=== PATIENT | male | born 1995 | race Caucasian/White ===

== ENCOUNTER 2016-06-21 14:03 | Emergency (ER) | payer BC ==
[2016-06-21 14:49] VITALS: BP 135/87
--- NOTE | 2016-06-21 15:20 | UC ---
Throat Pain/Nasal Jared HPI - HPI Summary HPI Summary: One week of sore throat, headache, malaise, ear pressure with progressive cough. No fever. X 2 days has increased eye irritation and discharge, worse on the left. He has discarded his lenses which are monthly extended wear lenses. - History of Current Complaint Chief Complaint: UCGeneralIllness Stated Complaint: SINUS,BILATERAL EYE COMPLAINT Time Seen by Provider: 06/21/16 15:14 Hx Obtained From: Patient Onset/Duration: Gradual Onset, Lasting Days - 7 Severity: Moderate Cough: Nonproductive Associated Signs & Symptoms: Positive: Dysphagia, Hoarseness, Sinus Discomfort - Epiglottits Risk Factors Epiglottis Risk Factors: Negative - Allergies/Home Medications Allergies/Adverse Reactions: Allergies Allergy/AdvReac Type Severity Reaction Status Date / Time No Known Allergies Allergy Verified 06/21/16 14:41 PMH/Surg Hx/FS Hx/Imm Hx Previously Healthy: Yes - Surgical History Surgical History: Yes Surgery Procedure, Year, and Place: sinus surgery, left shoulder surgery. past tonsillectomy - Family History Known Family History: Positive: Other - no family history of allergies. - Social History Occupation: Student Alcohol Use: None Substance Use Type: None Smoking Status (MU): Never Smoked Tobacco Review of Systems Constitutional: Negative Skin: Negative Eyes: Eye Redness ENT: Sore Throat, Ear Ache Respiratory: Negative Cardiovascular: Negative Gastrointestinal: Negative Genitourinary: Negative Motor: Negative Neurovascular: Negative Musculoskeletal: Negative Neurological: Headache - sinus pressure Psychological: Negative All Other Systems Reviewed And Are Negative: Yes Physical Exam Triage Information Reviewed: Yes Appearance: Ill-Appearing - congested and looks mildly unwell, Obese Vital Signs: Initial Vital Signs Temp 98.7 F 06/21/16 14:41 Pulse 86 06/21/16 14:41 Resp 16 06/21/16 14:41 BP 135/87 06/21/16 14:41 Pulse Ox 97 06/21/16 14:41 Eyes: Positive: Conjunctiva Inflamed - left eye injected with light yellow drainage, right also with injection. SUPRIYA, no photophobia. ENT: Positive: Pharyngeal erythema, TM red - bilateral TM retraction and erythema Neck: Positive: Supple, Nontender, No Lymphadenopathy Respiratory: Positive: Lungs clear, Normal breath sounds Cardiovascular: Positive: RRR, No Murmur Neurological Exam: Normal Neurological: Positive: Alert Psychological Exam: Normal Skin Exam: Normal Throat Pain/Nasal Course/Dx - Course Course Of Treatment: augmentin for sinusitis, drops for conjunctivitis. - Differential Dx/Diagnosis Differential Diagnosis/HQI/PQRI: Influenza, Pharyngitis, Sinusitis, Other - conjunctivitis Provider Diagnoses: sinusitis (acute). bilateral conjunctivitis. Discharge - Discharge Plan Condition: Stable Disposition: HOME Prescriptions: Amoxicillin/Clavulanate TAB* [Augmentin TAB 875*] 875 mg PO BID #20 tab Tobramycin 0.3% OPHTH.JOSE* 2 drop BOTH EYES Q4H #1 btl Patient Education Materials: Sinusitis (ED), Conjunctivitis (ED) Additional Instructions: Take the full course of augmentin, being aware of diarrhea and stomach cramping as a side effect. You should begin use of your contact lenses after the conjunctivitis is fully treated.
== END 2016-06-21 15:37 | disposition home or self-care (01) ==
LOC: UCCORT 14:03
DX: J01.90 Acute sinusitis, unspecified (principal); H10.33 Unspecified acute conjunctivitis, bilateral; E66.9 Obesity, unspecified
CPT/HCPCS: 99212; G0463

== ENCOUNTER 2016-07-05 12:07 | Emergency (ER) | payer BC ==
--- NOTE | 2016-07-05 13:21 | UC ---
Lower Extremity/Ankle HPI - HPI Summary HPI Summary: TWO DAYS AGO WALKING OUT OF HOUSE, SLIPPED ON WET STEPS, ROLLED LEFT ANKLE. STATES DULL, ACHE IN ANKLE ALL THROUGHOUT THE DAY, AT NIGHT HE HAS FOOT SPASMS, AND IN THE MORNING INCREASE IN PAIN. UNABLE TO PUT ANY WEIGHT ON FOOT, LIMITED ROM. SWELLING AND BRUISING TO ANKLE. He has been using crutches that he borrowed from a friend. Goes to college here. Doesnt have a car. pain is constant at 6/10. He took 2 excedrin this AM. Doesnt have elevated BP normally. - History of Current Complaint Chief Complaint: UCLowerExtremity Stated Complaint: LEFT ANKLE INJURY Time Seen by Provider: 07/05/16 13:19 - Allergies/Home Medications Allergies/Adverse Reactions: Allergies Allergy/AdvReac Type Severity Reaction Status Date / Time No Known Allergies Allergy Verified 06/21/16 14:41 Home Medications: Home Medications Cyqpbpy-Pmfiicelqusle-Dnaexpro [Excedrin Migraine 250-250-65 mg] 2 tab PO PRN [History] PMH/Surg Hx/FS Hx/Imm Hx Previously Healthy: Yes - Surgical History Surgical History: Yes Surgery Procedure, Year, and Place: sinus surgery, left shoulder surgery. past tonsillectomy - Family History Known Family History: Positive: Other - no family history of allergies. Negative: Cardiac Disease, Diabetes - Social History Alcohol Use: Occasionally Substance Use Type: None Smoking Status (MU): Never Smoked Tobacco Review of Systems Constitutional: Negative Skin: Negative Eyes: Negative ENT: Negative Respiratory: Negative Cardiovascular: Negative Gastrointestinal: Negative Genitourinary: Negative Motor: Negative Neurovascular: Negative Musculoskeletal: Arthralgia, Decreased ROM, Edema, Other: - bruising Neurological: Negative Psychological: Negative All Other Systems Reviewed And Are Negative: Yes Physical Exam Triage Information Reviewed: Yes Appearance: Well-Appearing, No Pain Distress - while sitting., Well-Nourished - very pleasant Vital Signs: Initial Vital Signs Temp 98.4 F 07/05/16 12:43 Pulse 91 07/05/16 12:43 Resp 16 07/05/16 12:43 BP 154/103 07/05/16 12:43 Pulse Ox 99 07/05/16 12:43 Vital Signs Reviewed: Yes Eye Exam: Normal ENT Exam: Normal Respiratory Exam: Normal Respiratory: Positive: Lungs clear Cardiovascular Exam: Normal Cardiovascular: Positive: RRR, No Murmur, Pulses Normal, Brisk Capillary Refill Musculoskeletal: Positive: Other: - left ankle with moderate generalized swelling. there is bruising at inferor medial and lateral ankle that is purple in color. significant tenderness in this area as well. cool totouch. mortise intact. CR brisk. good ROM in toes. sensation intact. Neurological Exam: Normal Psychological Exam: Normal Skin Exam: Normal Lower Extremity Course/Dx - Course Course Of Treatment: left ankle xray- Indication: 3 views of the left ankle demonstrates no fracture. Soft tissue swelling is noted. laterally. No fracture is noted. IMPRESSION: Soft tissue swelling laterally without evidence of fracture. ISTOP: Confidential Drug Utilization Report Search Date:2016 02:07:23 PM. The Drug Utilization Report below displays all of the controlled substance prescriptions, if any, that your patient has filled in the last twelve months. The information displayed on this report is compiled from pharmacy submissions to the Department, and accurately reflects the information as submitted by the pharmacies. 11/07/2015. hydrocodone-acetaminophen 7.5-300 mg tablet 12, 3. Dasia Mustafa DDS. At the end of the visit pt asks for something stronger than tylenol with codeine that I had agreed to give him. He states that he got off of the phone with his Mom and she told him he will need something stronger. I have advised him that stronger narcotic medicine is not indicated for an ankle sprain as the xray is read as negative for fracture. He is visibly upset with elevated voice and agitation. I have discussed with him that there is significant concerns with addiction to controlled substances and stronger medicine is not indicated. He should ahve BP rechecked on Thursday at [facility]. Limit NSAIDs with elev BP. He has taken 2 excedrin prior to coming in today. Excedrin and pain are likely cause of elevated BP today. BP was repeated and improved to 130s/90. - Differential Dx/Diagnosis Differential Diagnosis/HQI/PQRI: Fracture (Closed), Sprain, Strain, Tendonitis Provider Diagnoses: Left ankle sprain Discharge - Discharge Plan Condition: Stable Disposition: HOME Prescriptions: Acetaminop/Codeine 30 MG TAB* [Tylenol/Codeine 30 MG TAB*] 1 tab PO Q12H PRN #6 tab MDD 2 PRN Reason: Pain Patient Education Materials: Ankle Sprain (ED) Referrals: Jeancarlos Andrew MD [Medical Doctor] - 2 Days No Primary Care Phys,NOPCP [Primary Care Provider] - Additional Instructions: Ice with towel barrier as much as possible. Gel air cast and crutches have been provided. Go to [facility] to get your blood pressure checked periodically. I have shown you exercises for your ankle. Ibuporfen for pain and swelling. You may need xrays repeated in 2 wks if your symptoms are no better.
--- NOTE | 2016-07-05 13:51 | RAD ---
Indication: Lateral ankle pain. 3 views of the left ankle demonstrates no fracture. Soft tissue swelling is noted laterally. No fracture is noted. IMPRESSION: Soft tissue swelling laterally without evidence of fracture.
[2016-07-05 14:26] VITALS: BP 163/99
== END 2016-07-05 14:58 | disposition home or self-care (01) ==
LOC: UCCORT 12:07
DX: S93.402A Sprain of unspecified ligament of left ankle, initial encounter (principal); X50.1XXA Overexertion from prolonged static or awkward postures, initial encounter; Y93.9 Activity, unspecified; Y92.9 Unspecified place or not applicable
CPT/HCPCS: 99213; G0463